=== PATIENT | male | born 1980 | race Caucasian/White ===

== ENCOUNTER 2016-08-26 18:42 | Emergency (ER) | payer OTHER ==
[2016-08-26 18:50] VITALS: BP 126/72
--- NOTE | 2016-08-26 19:36 | XRAY Preliminary Report ---
Exam: XR Ankle 3 View RT IMPRESSION: No bony abnormality. [facility] SITE ID: [id number]
--- NOTE | 2016-08-26 19:50 | XRAY Report ---
EXAM: RIGHT ANKLE RADIOGRAPHY EXAM DATE: 08/26/2016 07:18 PM. CLINICAL HISTORY: Right ankle rolled while playing softball. COMPARISON: None. TECHNIQUE: 3 views. FINDINGS: Bones: Normal. No fractures or bone lesions. Joints: Normal. No effusion. No subluxations. The ankle mortise is normally aligned. Soft Tissues: Moderate edema over the lateral malleolus. IMPRESSION: No bony abnormality. [facility] Referring Provider Line: [phone] SITE ID: [id number]
--- NOTE | 2016-08-26 21:38 | ED Physician Documentation ---
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 He has swelling and tenderness over the talofibular ligament. He is not able to bear weight. Review of Systems Constitutional: denies: Fever Respiratory: denies: Dyspnea GI: denies: Vomiting Musculoskeletal: reports: Extremity pain, Joint pain, Extremity swelling, Joint swelling, Pain with weight bearing Neurologic: denies: Generalized weakness, Focal weakness, Numbness PD PAST MEDICAL HISTORY - Past Medical History Past Medical History: No - Past Surgical History Past Surgical History: No - Present Medications Home Medications: Ambulatory Orders Medication Instructions Recorded Confirmed No Known Home Medications [No 08/26/16 08/26/16 Known Home Medications] - Allergies Allergies/Adverse Reactions: Allergies Allergy/AdvReac Type Severity Reaction Status Date / Time No Known Drug Allergies Allergy Verified 08/26/16 18:49 - Social History Does the pt smoke?: Yes Smoking Status: Current some day smoker Does the pt drink ETOH?: No Does the pt have substance abuse?: No - Immunizations Immunizations are current?: Yes PD ED PE NORMAL - Vitals Vital signs reviewed: Yes (Normal) - General General: Alert and oriented X 3, No acute distress, Well developed/nourished - HEENT HEENT: Atraumatic, PERRL, EOMI - Respiratory Respiratory: No respiratory distress - Derm Derm: Normal color, Warm and dry, No rash - Extremities Extremities: Other (There is swelling and point tenderness over the right talofibular ligament there is no tenderness or swelling to the medial malleolus. There is no tenderness to the proximal fifth. The distal neurovascular components are intact.) - Neuro Neuro: No motor deficit, No sensory deficit - Psych Psych: Normal mood, Normal affect Results - Vitals Vitals: Vital Signs - 24 hr 08/26/16 18:47 Temperature 37.1 C Heart Rate 84 Respiratory 18 Rate Blood Pressure 126/72 O2 Saturation 97 - Rads (name of study) ankle Radiology: Prelim report reviewed (Impression: No bony abnormality.), EMP read indepedently, See rad report Procedures - Splint (location) Ankle Splint applied by: Tech Type of splint: Ankle airsplint Other: Patient tolerated well, No complications, Neurovascular intact, Good alignment, Crutches provided PD MEDICAL DECISION MAKING - ED course Complexity details: reviewed results, re-evaluated patient, considered differential, d/w patient, d/w family ED course: 36-year-old male with ankle sprain with no evidence of fracture on his x-ray is placed into an ankle Aircast and instructed to wear it 24 7 for 2 weeks. He is dispensed crutches as well. Departure - Departure Disposition: 01 Home, Self Care Clinical Impression: Ankle sprain Qualifiers: Encounter type: initial encounter Involved ligament of ankle: calcaneofibular ligament Laterality: right Qualified Code(s): S93.411A - Sprain of calcaneofibular ligament of right ankle, initial encounter Condition: Stable Instructions: ED Sprain Ankle W X Ray Follow-Up: CLARITZA Valladares [Provider Group]
== END 2016-08-26 22:10 | disposition home or self-care (01) ==
LOC: ED 18:42
DX: S93.411A Sprain of calcaneofibular ligament of right ankle, initial encounter (principal); X50.9XXA Other and unspecified overexertion or strenuous movements or postures, initial encounter; W22.09XA Striking against other stationary object, initial encounter; Y93.64 Activity, baseball; F17.200 Nicotine dependence, unspecified, uncomplicated
CPT/HCPCS: 99283